=== PATIENT | female | born 1945 | race Caucasian/White ===

== ENCOUNTER 2017-02-04 10:46 | Emergency (ER) | payer OTHER, BC ==
[~2017-02-04] VITALS: Ht 152.4 cm; Wt 66.3 kg
[~2017-02-04 10:46] MED LIST: AMIODARONE HCL200 MG PO; BENTYL20 MG PO; BYSTOLIC5 MG PO; CARBIDOPA/LEVO1 EACH PO; CARDIZEM CD,CA120 MG PO; CEFTIN500 MG PO; CENTRUM SILVER1 EAC3 PO; CILOSTAZOL100 MG PO; CIPRO500 MG PO; COLACE100 MG PO; COMPAZINE10 MG PO; CRESTOR10 MG PO; Colace PO; DIGOXIN125 MCG PO; DILTIAZEM 24HR120 MG PO; FERROUS SULFAT325 MG PO; FLEXERIL10 MG PO; FLUOXETINE HCL40 MG PO; Flagyl PO; LANSOPRAZOLE30 MG PO; LOSARTAN POTASS25 MG PO; MIRALAX255 GM PO; NEURONTIN600 M1 PO; NEURONTIN600 MG PO; PENTASA500 MG PO; PLAVIX75 MG PO; POLYETHYLENE GL17 GM PO; PREVACID30 MG PO; PROZAC20 M1 PO; PROZAC40 MG PO; QUESTRAN4 GM/PACKE PO; RANITIDINE HCL300 M1 PO; RANITIDINE HCL300 MG PO; SPIRIVA1 INHALATI IH; TESSALON200 MG PO; TYLENOL ARTHRI650 MG PO; TYLENOL EXTRA500 MG PO; VESICARE5 MG PO; XARELTO20 MG PO; ZOFRAN4 MG PO; [UNRECOGNIZED DRUG - OTHER] PO
[2017-02-04 11:52] LABS: BASOPHIL COUNT 0.1 K/uL (0-0.1); EOSINOPHIL (%) 5.2 % (0-5); EOSINOPHIL COUNT 0.3 K/uL (0-0.3); HEMATOCRIT 38.1 % (36.0-46.0); IMMATURE GRANULOCYTE (%) 0.5 % (0.0-0.7); INSTRUMENT ABS NEUTROPHIL CT 4.6 K/uL; LYMPHOCYTE COUNT 0.8 K/uL (1.0-2.8); MCH 30.9 PG (29.0-34.0); MCHC 31.5 G/DL (30.0-36.0); MCV 98.2 FL (83-99); MEAN PLAT.VOLUME 8.5 uM^3 (9.5-12.4); MONOCYTE (%) 10.6 % (3-12); MONOCYTE COUNT 0.7 K/uL (0-0.8); NEUTROPHIL (%) 70.8 % (45-76); NEUTROPHIL COUNT 4.6 K/uL (1.8-6.4); PLATELET COUNT 199 K/uL (156-360); RBC DIS.WIDTH-SD 50.2 % (39-53); RED BLOOD COUNT 3.88 M/uL (3.80-5.20); WHITE BLOOD COUNT 6.5 K/uL (4.1-10.2)
[2017-02-04 12:00] LABS: CHLORIDE 105 mEq/L (99-109); POTASSIUM 5.3 mEq/L (3.7-5.4); SODIUM 137 mEq/L (136-147)
[2017-02-04 12:02] LABS: GLUCOSE 96 mg/dL (70-99)
[2017-02-04 12:03] LABS: ANION GAP 7 MEQ/L (2-14); PROTHROMBIN TIME 10.6 (9.2-11.2); PTT 31.6 (25-32)
[2017-02-04 12:06] LABS: GFR ESTIMATE (CALCULATED) 58 mL/min/
[2017-02-04 12:07] LABS: UREA NITROGEN (BUN) 27 mg/dL (9-23)
[2017-02-04 12:12] LABS: TROP-I INTERPRETATION NEGATIVE; TROPONIN-I < 0.01 ng/mL (0.0-0.30)
[2017-02-04] MEDS ORDERED: ANTIVERT25 MG PO (14:22)
[2017-02-04] MEDS ORDERED: LEVAQUIN750 MG PO (14:22)
[2017-02-04 15:21] VITALS: BP 142/85
== END 2017-02-04 16:11 | disposition home or self-care (01) ==
LOC: EME 10:46
PROVIDERS: Emergency Medicine
DX: R55 Syncope and collapse (principal); J44.9 Chronic obstructive pulmonary disease, unspecified; I10 Essential (primary) hypertension; K21.9 Gastro-esophageal reflux disease without esophagitis; G89.29 Other chronic pain; F32.9 Major depressive disorder, single episode, unspecified; Z87.891 Personal history of nicotine dependence
CPT/HCPCS: 70450; 71010; 80048; 84484; 85025; 85610; 85730; 93005; 99281; 99285; J0780; J2405

== ENCOUNTER → 2017-07-24 | Outpatient (CLI) | payer OTHER, BC ==
[~2017-07-24] MED LIST changes: +ANTIVERT25 MG PO; +LEVAQUIN750 MG PO
== END ==
LOC: RAD 10:32
DX: J98.4 Other disorders of lung (principal); Z87.01 Personal history of pneumonia (recurrent)
CPT/HCPCS: 71260